=== PATIENT | female | born 1955 | race Caucasian/White ===

== ENCOUNTER 2018-03-30 06:57 | Day surgery (SDC) | payer OTHER ==
[2018-03-30] MEDS ORDERED: Propofol 10 mg/ml Inj (20 ML) ONE (09:19)
--- NOTE | 2018-03-30 09:22 | CP.SDSHP ---
Same Day Surgery H & P - History Proposed Procedure: COLONSCOPY Pre-Op Diagnosis: SEE NOTES - Previous Medical/Surgical History Endocrine/Metabolic: Thyroid Disease Pain: 2.Mild Pain - Allergies Allergies: Allergies No Known Allergies Allergy (Verified 06/05/15 18:44) - Physical Exam General Appearance: N Vital Signs: Vital Signs 03/30/18 07:21 Temperature 97.7 F Pulse Rate 80 Respiratory 20 Rate Blood Pressure 122/68 O2 Sat by Pulse 97 Oximetry Mental Status: Alert & Oriented x3 Neuro: WNL Heart: Other Lungs: WNL GI: WNL - {Optional Preform as Required} Breast: WNL Abdomen: WNL Rectal: Other Integument: WNL : WNL Ortho: Other ENT: WNL - Impression Pt. Evaluated Today:Candidate for Anesthesia & Procedure: Yes - Date & Time Time: 09:22 Short Stay Discharge - Short Stay Discharge Admitting Diagnosis/Reason for Visit: ENCOUNTER FOR SCREENING FOR MALIGNANT NEOPLASM OF Disposition: HOME/ ROUTINE
[2018-03-30] MEDS ORDERED: Lactated Ringer's 500 ML IV SCH (09:30)
[2018-03-30] MEDS ORDERED: Belladonna-Phenobarbital PO ONE (09:50)
[2018-03-30 10:39] VITALS: TEMP 98
[2018-03-30 10:51] VITALS: BP 123/69; PULSE 67; RESP 16; O2SAT 99
== END 2018-03-30 10:45 | disposition home or self-care (01) ==
LOC: C.ENDO 06:57
PROVIDERS: ATTEND Specialist
DX: Z12.11 Encounter for screening for malignant neoplasm of colon (principal); K57.30 Diverticulosis of large intestine without perforation or abscess without bleeding
CPT/HCPCS: 45380; 88305; J2704; J7120

== ENCOUNTER 2018-04-06 07:17 | Day surgery (SDC) | payer OTHER ==
[2018-04-06 08:13] VITALS: BMI 31.1
[2018-04-06] MEDS ORDERED: Lidocaine Hydrochloride 5 ML INJ ONE (09:00)
[2018-04-06] MEDS ORDERED: Propofol 10 mg/ml Inj (20 ML) ONE (09:00)
--- NOTE | 2018-04-06 09:04 | CP.SDSHP ---
Same Day Surgery H & P - History Proposed Procedure: EGD Pre-Op Diagnosis: SEE NOTES - Previous Medical/Surgical History Cardiac: Hypertension Endocrine/Metabolic: Thyroid Disease - Allergies Allergies: Allergies No Known Allergies Allergy (Verified 04/06/18 08:13) - Physical Exam General Appearance: N Vital Signs: Vital Signs 04/06/18 08:07 Temperature 97.3 F L Pulse Rate 69 Respiratory 19 Rate Blood Pressure 119/70 O2 Sat by Pulse 97 Oximetry Mental Status: Alert & Oriented x3 Neuro: WNL Heart: Other Lungs: WNL GI: Other - {Optional Preform as Required} Breast: WNL Abdomen: Other Rectal: Other Integument: WNL : WNL Ortho: Other ENT: WNL - Impression Pt. Evaluated Today:Candidate for Anesthesia & Procedure: Yes - Date & Time Time: 09:04 Short Stay Discharge - Short Stay Discharge Admitting Diagnosis/Reason for Visit: FUNCTIONAL DYSPEPSIA Disposition: HOME/ ROUTINE
[2018-04-06] MEDS ORDERED: Pantoprazole 40 mg EC Tab PO STA (09:09)
[2018-04-06 09:41] VITALS: TEMP 98
[2018-04-06 10:33] VITALS: RESP 12; O2SAT 98
[2018-04-06 10:36] VITALS: BP 114/77; PULSE 65
== END 2018-04-06 10:25 | disposition home or self-care (01) ==
LOC: C.ENDO 07:17
PROVIDERS: ATTEND Specialist
DX: K29.50 Unspecified chronic gastritis without bleeding (principal); K21.0 Gastro-esophageal reflux disease with esophagitis; R10.13 Epigastric pain; R11.0 Nausea; K44.9 Diaphragmatic hernia without obstruction or gangrene; I10 Essential (primary) hypertension
CPT/HCPCS: 43239; 88305; J2704